=== PATIENT | female | born 1975 ===

== ENCOUNTER 2018-01-13 21:11 | Outpatient (REF) | payer MEDICAID, SELFPAY ==
[2018-01-13 22:00] LABS: Abs Immature Grans 0.01 k/cumm (0.0-0.09); Absolute Eosinophil Count 0.74 k/cumm (0.0-0.7); Absolute Lymphocyte Count 2.51 k/cumm (1.2-3.4); Absolute Monocyte Count 1.03 k/cumm (0.11-0.7); Absolute Neutrophil Count 3.66 k/cumm (1.2-6.7); Basophils % 1.2; Eosinophils % 9.2; HCT 39.7 % (36.0-46.0); HGB 12.9 g/dL (12.0-15.5); Immature Grans % 0.1; Lymphocytes % 31.2; Mean Corp. HGB Concentration 32.5 g/dL (32.0-36.0); Mean Corpuscular Hemoglobin 26.7 pg (27.0-33.0); Monocytes % 12.8; Neutrophils % 45.5; Platelet Count 414 x1000/uL (130-400); RBC 4.84 m/cumm (4.00-5.20); RBC Distribution Width 16.2 % (11.7-14.6); White Blood Cell Count 8.05 k/cumm (4.4-10.8)
[2018-01-13 22:24] LABS: Anion Gap 8.9 mmol/L (3-11); BUN 12 mg/dL (7-18); CO2 27.1 mmol/L (21.0-32.0); CREATININE 0.87 mg/dL (0.55-1.02); Calcium 9.3 mg/dL (8.5-10.1); Chloride 101 mmol/L (98-107); Glucose 85 mg/dL (70-100); Potassium 4.4 mmol/L (3.5-5.1); Sodium 137 mmol/L (136-145); TSH (W/Ref FT4) 1.03 uIU/mL (0.358-3.74)
== END 2018-01-13 21:31 ==
LOC: NCHCN 21:11
PROVIDERS: Referring Provider Nurse Practitioner; Visit Provider Nurse Practitioner
DX: R00.2 Palpitations (principal)
CPT/HCPCS: 80048; 84443; 85025

== ENCOUNTER 2018-01-14 15:28 | Outpatient (CLI) | payer MEDICAID, SELFPAY | END 2018-01-14 15:48 | PROVIDERS: PCP Internal Medicine; Visit Provider Nurse Practitioner | DX: R00.1 Bradycardia, unspecified (principal); R00.2 Palpitations | CPT/HCPCS: 93225 ==

== ENCOUNTER 2018-01-15 07:45 | Outpatient (CLI) | payer MEDICAID, SELFPAY ==
[2018-01-15 09:03] LABS: Cholesterol 149 mg/dL (50-200); Glucose 94 mg/dL (70-100); HDL Cholesterol 62 mg/dL (40-60); LDL CHOLESTEROL 74 mg/dL (<100); Triglyceride 67 mg/dL (30-150)
== END 2018-01-15 08:05 ==
PROVIDERS: PCP Internal Medicine; Visit Provider Nurse Practitioner
DX: Z13.1 Encounter for screening for diabetes mellitus (principal); Z13.220 Encounter for screening for lipoid disorders
CPT/HCPCS: 36415; 80061; 82947; 83721; 83735

== ENCOUNTER 2018-01-18 11:23 | Outpatient (REF) | payer MEDICAID, SELFPAY ==
--- NOTE | 2018-01-18 16:42 | W.HOLTRPT ---
Holter Monitor Report Holter Monitor Note: Baseline sinus. Rare single PAC. No atrial fibrillation or SVT. Frequent single PVC, 1484 total 0.6% total beat. 2 couplets. No VT. No bradycardia. No symptoms. Average heart rate 83 bpm, range 60-142 bpm.
== END 2018-01-18 11:43 ==
LOC: RT 11:23
PROVIDERS: PCP Internal Medicine; Visit Provider Nurse Practitioner
DX: R00.2 Palpitations (principal); I49.3 Ventricular premature depolarization
CPT/HCPCS: 93226

== ENCOUNTER 2018-01-27 21:00 | Emergency (ER) | payer MEDICAID, SELFPAY ==
[2018-01-27 21:07] VITALS: BP 159/87; PULSE 90; RESP 16; TEMP 36.1; O2SAT 98
--- NOTE | 2018-01-27 21:24 | W.ED.GENAD ---
Discharge Plan Disposition Patient Disposition: HOME Condition: Improving Discharge Details Chief Complaint: Dizzy/Sync Clinical Impression: Heart palpitations Primary Care Provider: Jose Antonio Chi ED Provider: Wilder Madison Home Meds and New Rx's Prescriptions: No Action No Known Home Meds RF: 0 Discharge Instructions Instructions: Palpitations (ED) Additional Instructions: Small, frequent sips of fluids to maintain hydration. Follow-up with cardiology as planned. Return to the emergency department if you develop any acute chest discomfort, difficulty breathing, or any other acute concerns Medical Decision Making 42-year-old female presents from home with report of intermittent episodes of irregular heart rate over weeks time. Recurred again tonight while at [employer]. Associated with diaphoresis. She recently underwent Holter monitor and reported on January 18 shows heart rates ranging from the 60s-140s without evidence of A. fib or SVT. She arrives improved, afebrile, without further complaints. Differential diagnosis would include dehydration, electrolyte abnormalities, stable tachydysrhythmia, must consider ACS or PE. Patient IV access established, given fluid bolus, referred for laboratory testing, EKG. Troponin negative, chemistries reassuring, TSH within normal limits as is the CBC. Patient improved while in the ED. She did have a mildly elevated d-dimer and therefore was referred for chest CT to rule out PE. This was a negative study. Patient has pre-standing follow-up with cardiology. Do not feel that she requires further evaluation at this time. She stable and improved, appropriate for discharge to home with her . ECG Data Attestation: I personally reviewed and interpreted this ECG (s) as follows: Interpretation: Normal sinus rhythm, the rate is 95, the QRS is narrow, no ST segment elevate. HPI General Mode of arrival: ambulatory. Date/Time Provider Initiated Documentation: 01/27/18 21:02. Limitations to Documentation: no limitations. Information obtained by: patient and family. History of Present Illness 42 year old F presents to the emergency department with the chief complaint of Palpitations, described as moderate, Quality is described as other, and is localized to the chest. Patient reports no radiation. Patient started experiencing this minute(s) and it has been intermittent and now resolved. No relieving factors improve symptom(s), No exacerbating factors reported . Patient notes diaphoresis; denies chest pain. Related Data Home Medications Medication Instructions Recorded Confirmed Unknown [No Known Home Meds] 01/27/18 01/27/18 General Stated Complaint: Dizzy/Sync YANN: 3 Review of Systems Review of Systems 8 systems reviewed and otherwise negative Exam Narrative Exam Narrative: GEN: awake, alert, oriented 3. Pleasant, well groomed, interactive. HEAD: Normocephalic, atraumatic ENT: Mucous membranes moist, oropharynx unremarkable, External ear exam unremarkable EYES: PERRL, EOMI NECK: Full ROM, no MANUEL, no menigismus CHEST/RESP: Nontender, clear to auscultation bilateral, no wheeze/rhonchi/rales CARDIOVASCULAR: RRR, no murmur, rub anita. 2+ Rad pulse bilateral ABDOMEN: Soft, nontender, no mass. +Bowel sounds EXT: Full ROM, no edema, no rash Neuro: Grossly normal neurologic exam, conversant, interactive. Psych: Speech fluent, thoughts congruent, affect slightly anxious Course Vital Signs Temperature 36.1 C L 01/27/18 21:07 Pulse 90 01/27/18 21:07 Respiratory Rate 16 01/27/18 21:07 Blood Pressure 159/87 H 01/27/18 21:07 Pulse Oximetry 98 01/27/18 21:07 Temperature 36.1 C L 01/27/18 21:07 Temperature Source Skin 01/27/18 21:07 Pulse 90 01/27/18 21:07 Respiratory Rate 16 01/27/18 21:07 Blood Pressure 159/87 H 01/27/18 21:07 Blood Pressure Position Sitting 01/27/18 21:07 Pulse Oximetry 98 01/27/18 21:07 Oxygen Delivery Method Room Air 01/27/18 21:07 Oxygen Flow Rate 0 01/27/18 21:07
--- NOTE | 2018-01-27 21:27 | ED.GENADUL_ITS ---
Discharge Plan Disposition Patient Disposition: HOME Condition: Improving Discharge Details Chief Complaint: Dizzy/Sync Clinical Impression: Heart palpitations Primary Care Provider: Jose Antonio Chi ED Provider: Wilder Madison Home Meds and New Rx's Prescriptions: No Action No Known Home Meds RF: 0 Discharge Instructions Instructions: Palpitations (ED) Additional Instructions: Small, frequent sips of fluids to maintain hydration. Follow-up with cardiology as planned. Return to the emergency department if you develop any acute chest discomfort, difficulty breathing, or any other acute concerns Medical Decision Making 42-year-old female presents from home with report of intermittent episodes of irregular heart rate over weeks time. Recurred again tonight while at [employer]. Associated with diaphoresis. She recently underwent Holter monitor and reported on January 18 shows heart rates ranging from the 60s-140s without evidence of A. fib or SVT. She arrives improved, afebrile, without further complaints. Differential diagnosis would include dehydration, electrolyte abnormalities, stable tachydysrhythmia, must consider ACS or PE. Patient IV access established, given fluid bolus, referred for laboratory testing, EKG. Troponin negative, chemistries reassuring, TSH within normal limits as is the CBC. Patient improved while in the ED. She did have a mildly elevated d-dimer and therefore was referred for chest CT to rule out PE. This was a negative study. Patient has pre-standing follow-up with cardiology. Do not feel that she requires further evaluation at this time. She stable and improved, appropriate for discharge to home with her . ECG Data Attestation: I personally reviewed and interpreted this ECG (s) as follows: Interpretation: Normal sinus rhythm, the rate is 95, the QRS is narrow, no ST segment elevate. HPI General Mode of arrival: ambulatory . Date/Time Provider Initiated Documentation: 01/27/18 21:02 . Limitations to Documentation: no limitations . Information obtained by: patient and family . History of Present Illness 42 year old F presents to the emergency department with the chief complaint of Palpitations, described as moderate, Quality is described as other, and is localized to the chest. Patient reports no radiation. Patient started experiencing this minute(s) and it has been intermittent and now resolved. No relieving factors improve symptom(s), No exacerbating factors reported . Patient notes diaphoresis; denies chest pain. Related Data Home Medications Medication Instructions Recorded Confirmed Unknown [No Known Home Meds] 01/27/18 01/27/18 General Stated Complaint: Dizzy/Sync YANN: 3 Review of Systems Review of Systems 8 systems reviewed and otherwise negative Exam Narrative Exam Narrative: GEN: awake, alert, oriented 3. Pleasant, well groomed, interactive. HEAD: Normocephalic, atraumatic ENT: Mucous membranes moist, oropharynx unremarkable, External ear exam unremarkable EYES: PERRL, EOMI NECK: Full ROM, no MANUEL, no menigismus CHEST/RESP: Nontender, clear to auscultation bilateral, no wheeze/rhonchi/rales CARDIOVASCULAR: RRR, no murmur, rub anita. 2+ Rad pulse bilateral ABDOMEN: Soft, nontender, no mass. +Bowel sounds EXT: Full ROM, no edema, no rash Neuro: Grossly normal neurologic exam, conversant, interactive. Psych: Speech fluent, thoughts congruent, affect slightly anxious Course Vital Signs Temperature 36.1 C L 01/27/18 21:07 Pulse 90 01/27/18 21:07 Respiratory Rate 16 01/27/18 21:07 Blood Pressure 159/87 H 01/27/18 21:07 Pulse Oximetry 98 01/27/18 21:07 Temperature 36.1 C L 01/27/18 21:07 Temperature Source Skin 01/27/18 21:07 Pulse 90 01/27/18 21:07 Respiratory Rate 16 01/27/18 21:07 Blood Pressure 159/87 H 01/27/18 21:07 Blood Pressure Position Sitting 01/27/18 21:07 Pulse Oximetry 98 01/27/18 21:07 Oxygen Delivery Method Room Air 01/27/18 21:07 Oxygen Flow Rate 0 01/27/18 21:07
[2018-01-27 21:34] LABS: Abs Immature Grans 0.01 k/cumm (0.0-0.09); Absolute Basophil Count 0.08 k/cumm (0.0-0.2); Absolute Eosinophil Count 0.53 k/cumm (0.0-0.7); Absolute Lymphocyte Count 3.82 k/cumm (1.2-3.4); Absolute Neutrophil Count 3.46 k/cumm (1.2-6.7); Basophils % 0.9; Eosinophils % 5.8; HCT 36.9 % (36.0-46.0); HGB 12.2 g/dL (12.0-15.5); Immature Grans % 0.1; Lymphocytes % 41.5; Mean Corp. HGB Concentration 33.1 g/dL (32.0-36.0); Mean Corpuscular Hemoglobin 26.9 pg (27.0-33.0); Mean Corpuscular Volume 81.3 fL (80-95); Mean Platelet Volume 10.3 fL (8.0-11.0); Monocytes % 14.1; Neutrophils % 37.6; Platelet Count 399 x1000/uL (130-400); RBC 4.54 m/cumm (4.00-5.20); RBC Distribution Width 15.7 % (11.7-14.6)
[2018-01-27] MEDS: Lactated Ringers 1,000 ML 1000 ML IV (21:35)
[2018-01-27 21:59] LABS: ALT 68 U/L (12-78); AST 43 U/L (15-37); Albumin 3.6 g/dL (3.4-5.0); Alkaline Phosphatase 87 U/L (46-116); Anion Gap 6.6 mmol/L (3-11); BUN 13 mg/dL (7-18); Bilirubin, Total 0.7 mg/dL (0.2-1.0); CO2 31.4 mmol/L (21.0-32.0); CREATININE 0.86 mg/dL (0.55-1.02); Calcium 9.3 mg/dL (8.5-10.1); Chloride 101 mmol/L (98-107); Glucose 118 mg/dL (70-100); Magnesium 1.8 mg/dL (1.8-2.4); Potassium 3.5 mmol/L (3.5-5.1); Sodium 139 mmol/L (136-145); TSH 1.39 uIU/mL (0.358-3.74); Total Protein 8.5 g/dL (6.4-8.2)
[2018-01-27 22:01] LABS: Troponin I < 0.02 ng/mL (0.00-0.06)
[2018-01-27 22:13] LABS: D-Dimer 546 ng/mlFEU (<500)
--- NOTE | 2018-01-27 22:46 | DI.CT_ITS ---
SYMPTOMS/DIAGNOSIS: PALPITATIONS, ELEVATED D-DIMER CHEST CT FOR PULMONARY EMBOLISM: CT angiography was performed with multi slice acquisition and multi planar and 3D reconstruction. No pulmonary emboli are identified. The lungs are expiratory. No effusion, infiltrate or adenopathy is seen. The heart size is normal. The visualized portions of the upper abdomen are unremarkable. No pneumothorax or thoracic compression fractures are seen. IMPRESSION: No evidence of pulmonary emboli or other acute abnormality.
[2018-01-27] MEDS: Omnipaque 350 MG/ML 100 ML BTL IJ (22:49)
--- NOTE | 2018-01-27 23:13 | DI.VRAD_ITS ---
EXAM: CT Angiography Chest With Intravenous Contrast CLINICAL HISTORY: 42 years old, female; Signs and symptoms; Other: Palpitations, elevated d dimer TECHNIQUE: Axial computed tomographic angiography images of the chest with intravenous contrast using pulmonary embolism protocol. MIP reconstructed images were created and reviewed. Coronal and sagittal reformatted images were created and reviewed. CONTRAST: 100 mL of Omnipaque 350 administered intravenously. COMPARISON: No relevant prior studies available. FINDINGS: Pulmonary arteries: Unremarkable. No pulmonary embolism. Aorta: No acute findings. No thoracic aortic aneurysm. Lungs: Unremarkable. No mass. No consolidation. Pleural space: Unremarkable. No significant effusion. No pneumothorax. Heart: Unremarkable. No cardiomegaly. No significant pericardial effusion. No evidence of RV dysfunction. Bones/joints: No acute fracture. No dislocation. Soft tissues: Unremarkable. Lymph nodes: Unremarkable. No enlarged lymph nodes. IMPRESSION: Normal chest CTA. No pulmonary embolism. Dictated and Authenticated by: Jose Antonio Diaz MD. Ordering:JONATHAN BECKER MD
[2018-01-27 23:25] VITALS: TEMP 37.3
== END 2018-01-27 23:20 | disposition home or self-care (01) ==
PROVIDERS: Emergency Provider Emergency Medicine; PCP Internal Medicine
DX: R00.2 Palpitations (principal); R61 Generalized hyperhidrosis; R79.1 Abnormal coagulation profile
CPT/HCPCS: 36415; 71275; 80053; 93005; 96360; 99285; 83735; 84443; 84484; 85025; 85379; 93010; 99284; J3490

== ENCOUNTER 2019-08-13 09:46 | Outpatient (REF) | payer MEDICAID, SELFPAY ==
[2019-08-15 11:17] LABS: Campylobacter PCR Negative (Negative); Salmonella PCR Negative (Negative); Shiga Toxin PCR Negative (Negative); Shigella/Enteroinvasive Ecoli Negative (Negative)
== END 2019-08-13 10:06 ==
LOC: NCHCN 09:46
PROVIDERS: PCP Family Medicine; Visit Provider Family Medicine
DX: R19.7 Diarrhea, unspecified (principal)
CPT/HCPCS: 87505

== ENCOUNTER 2019-08-14 11:24 | Outpatient (REF) | payer MEDICAID, SELFPAY | END 2019-08-14 11:44 | LOC: LBN 11:24 | PROVIDERS: PCP Family Medicine; Visit Provider Family Medicine | DX: R19.7 Diarrhea, unspecified (principal) | CPT/HCPCS: 87329; 87177 ==

== ENCOUNTER 2019-08-19 12:50 | Outpatient (REF) | payer MEDICAID, SELFPAY ==
[2019-08-19 22:06] LABS: ESR 41 mm/hr (0-20)
[2019-08-24 12:26] LABS: SS-A Antibody 89.5 Units (<20.0); SS-B (La) Ab, IgG 4.8 Units (<20.0)
[2019-08-24 13:30] LABS: ANA Interpretation Positive (Negative)
== END 2019-08-19 13:10 ==
LOC: NCHCN 12:50
PROVIDERS: PCP Internal Medicine; Visit Provider Family Medicine
DX: M35.00 Sjogren syndrome, unspecified (principal)
CPT/HCPCS: 85652; 86038; 86235

== ENCOUNTER 2020-03-02 11:28 | Outpatient (CLI) | payer MEDICAID, SELFPAY ==
[2020-03-02 14:49] LABS: ALT 97 U/L (14-59)
[2020-03-05 06:07] LABS: Vitamin D 25 Total 35.7 ng/ml (30-100)
[2020-03-05 11:21] LABS: AST 67 U/L (15-37); Alkaline Phosphatase 112 U/L (46-116)
== END 2020-03-02 11:48 ==
PROVIDERS: PCP Internal Medicine; Visit Provider Nurse Practitioner Family
DX: M35.00 Sjogren syndrome, unspecified (principal); E55.9 Vitamin D deficiency, unspecified
CPT/HCPCS: 36415; 82306; 84075; 84450; 84460

== ENCOUNTER 2020-05-25 17:06 | Outpatient (REF) | payer MEDICAID, SELFPAY ==
[2020-05-28 16:23] LABS: COVID-19 RT-PCR UVMMC Result Negative (Negative)
== END 2020-05-25 17:07 | disposition home or self-care (01) ==
LOC: NCHCN 17:06
PROVIDERS: PCP Internal Medicine; Visit Provider Internal Medicine
DX: Z20.822 Contact with and (suspected) exposure to COVID-19 (principal)
CPT/HCPCS: U0003

== ENCOUNTER 2020-06-04 21:32 | Outpatient (CLI) | payer MEDICAID, SELFPAY ==
--- NOTE | 2020-06-04 13:27 | DI.RAD_ITS ---
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 TECHNIQUE: 2D digital imaging was performed. FINDINGS: Heart size is normal. The mediastinum is not widened. Lungs are clear. No infiltrates nor pleural effusions. IMPRESSION: No acute pulmonary findings.I note this patient had a normal chest CT scan January 2018 which was neg ative for pulmonary emboli at that time. DATA REPOSITORY: RADIATION DOSE DELIVERED:
== END 2020-06-04 21:33 ==
LOC: DI 21:32
PROVIDERS: PCP Internal Medicine; Visit Provider Internal Medicine
DX: R07.89 Other chest pain (principal); M35.00 Sjogren syndrome, unspecified
CPT/HCPCS: 71046

== ENCOUNTER 2021-11-22 10:39 | Outpatient (REF) | payer MEDICAID, SELFPAY ==
--- NOTE | 2021-11-22 09:45 | PAPFT_PTH ---
PATIENT: Zuleima Mercer LOC: [facility]#:[id number] AGE/SX: 46/F ROOM: RE11/22/[address]: Bobbi Rae : 1975 BED: DIS: 11/22/2021 SPEC #: [id number] RECD: 11/22/21 15:23 STATUS: CAROL REDesean #: [id number] SAV: 11/22/21 09:[address]: Bobbi Rae DEPT: [facility] Cytology RECD BY: Yoly Yang ENTERED: 11/22/21 15:24 SP TYPE: PAPFT OTHR DR: Jose Antonio Chi Tissues: 1 - CX/ENDOCX FOR PAP SMEARS Procedures: PAP THIN PREP/UVM Screening HPV DNA PROBE Comments: [id number]
== END 2021-11-22 10:40 | disposition home or self-care (01) ==
LOC: NCHCN 10:39
PROVIDERS: PCP Internal Medicine; Visit Provider Nurse Practitioner Family
DX: Z12.4 Encounter for screening for malignant neoplasm of cervix (principal); Z11.51 Encounter for screening for human papillomavirus (HPV)
CPT/HCPCS: 88142; 87624

== ENCOUNTER 2021-11-27 12:10 | Emergency (ER) | payer MEDICAID, SELFPAY ==
--- NOTE | 2021-11-27 12:00 | RT.EKG_ITS ---
APPROVED REPORT Exam: Resting ECG Reason for Exam: rapid heart rate Patient Location: E HR:84 bpm ECG Measurements Heart Rate 84 AXIS [place] 172 P 75 QRSd 98 QRS 49 QT 361 T 35 QTc 428 Conclusion Sinus rhythm...normal P axis, V-rate 60- 99 no STEMI, non-diagnostic EKG I have reviewed and interpreted ECG and agree with software generated interpretation.
[2021-11-27 12:14] VITALS: BP 150/81; PULSE 96; RESP 18; O2SAT 100
[2021-11-27 14:26] LABS: Abs Immature Grans 0.01 10^3/uL (0.0-0.06); Absolute Basophil Count 0.08 10^3/uL (0.0-0.2); Absolute Lymphocyte Count 2.97 10^3/uL (1.2-3.4); Absolute Monocyte Count 0.89 10^3/uL (0.1-0.8); Absolute Neutrophil Count 2.64 10^3/uL (1.2-6.7); Basophils % 1.2; Eosinophils % 4.4; HCT 35.1 % (36.0-46.0); HGB 11.2 g/dL (11.2-15.7); Immature Grans % 0.1; Lymphocytes % 43.1; MCH 23.6 pg (27.0-33.0); MCHC 31.9 % (32.0-36.0); MCV 74 fL (80-95); MPV 9.8 fL (8.0-11.0); Monocytes % 12.9; Neutrophils % 38.3; Platelet Count 444 10^3/uL (130-400); RBC 4.75 10^6/uL (3.93-5.22); RDW 17.4 % (11.7-14.6); RDW-SD 46.1 fL; WBC 6.89 10^3/uL (4.4-10.8)
[2021-11-27 14:50] LABS: ALT 64 U/L (14-59); AST 49 U/L (15-37); Albumin 3.8 g/dL (3.4-5.0); Alkaline Phosphatase 148 U/L (46-116); Anion Gap 7.6 mmol/L (3-11); BUN 10 mg/dL (7-18); Bilirubin, Total 0.8 mg/dL (0.2-1.0); CO2 29.4 mmol/L (21.0-32.0); CREATININE 0.8 mg/dL (0.55-1.02); Calcium 9.9 mg/dL (8.5-10.1); Chloride 101 mmol/L (98-107); Glucose 97 mg/dL (74-106); Potassium 3.7 mmol/L (3.5-5.1); Sodium 138 mmol/L (136-145); TSH (W/Ref FT4) 1.07 uIU/mL (0.36-3.74); Total Protein 9.6 g/dL (6.4-8.2); Troponin I < 50 ng/L (<or=60)
[2021-11-27 14:59] LABS: D-Dimer 561 ng/mlFEU (<500)
[2021-11-27 15:00] LABS: Diff Comment Agrees w/ Instrument; Microcytosis 1+
--- NOTE | 2021-11-27 15:00 | DI.CT_ITS ---
Exam(s) CT CHEST PE CTA EXAM: CT CHEST PE CTA CLINICAL HISTORY: elevated dimer, shortness of breath, recent covid. TECHNIQUE: Imaging Protocol: Axial CT angiography was performed with multi-slice acquisition and mu lti-planar and/or 3D reconstructions. CONTRAST MATERIAL: Intravenous: Omnipaque 350 Contrast volume:structured data in ml FINDINGS: CT angiography of the chest was performed with intravenous infusion of 100 cc of Omnipaque 350. The lungs are clear. No pleural effusion. Tracheobronchial tree appears intact. No evidence of pulmonary embolic disease. Thoracic aorta is of normal diameter, no thoracic aortic an eurysm or dissection, major branch vessels appear intact. No mediastinal or hilar adenopathy. Images obtained through the upper abdomen show unremarkable appearance of the visualized portions of the liver,pancreas, adrenals, and kidneys. IMPRESSION: Negative CT angiogram of the chest. No evidence of pulmonary embolic disease. RADIATION DOSE DELIVERED: 345.28mGy.cm Total DLP 345.28mGy.cm Total DLP !Error CTDIvol DATA REPOSITORY: All CT scans at this facility are submitted to the National Radiology Data Registry (NRDR) Dose Index Registry (DIR) with the [employer] (A[employer]). RADIATION OPTIMIZATION: All CT scans at this facility use at least one of these dose optimization te chniques: automated exposure control; mA and/or kV adjustment per patient size (includes targeted exa ms where dose is matched to clinical indication); or iterative reconstruction.
[2021-11-27] MEDS: Omnipaque 350 MG/ML 100 ML BTL IJ (15:22)
--- NOTE | 2021-11-27 16:06 | ED.GENADUL_ITS ---
Discharge Plan Disposition Patient Disposition: HOME Condition: Stable Discharge Details Clinical Impression: Palpitations Primary Care Provider: Jose Antonio Chi ED Provider: Corry Irene Home Meds and New Rx's Prescriptions: Continued dextroamphetamine-amphetamine [Adderall] 10 mg Tablet 10 mg PO PRN PRN clonazepam 0.5 mg Tablet 0.5 mg PO PRN PRN Discharge Instructions Instructions: Heart Palpitations (ED) Additional Instructions: Report for Holter monitor, they will likely call you tomorrow Limit your exertional activities until you are reevaluated in the outpatient setting with your primary care physician Keep yourself hydrated Return earlier should you have any worsening complaints Referrals: Jose Antonio Chi MD [Primary Care Provider] - Discharge Orders Other Ambulatory Orders: Holter Monitor (Routine) Timeframe: 1 Week Facility: [facility] - Location: Respiratory Therapy Ordered By: Corry Irene Discharge Data Discharge Date/Time-TO BE ENTERED AT DEPARTURE: 11/27/21 16:14 Medical Decision Making Patient appears well Her D-dimer was slightly elevated at 571, CT was performed without acute abnormality I do not see a clear source for her symptoms Holter monitor ordered in the outpatient setting She is instructed to follow-up with her PCP Certainly this could be a reaction to the shingles vaccine, there is no evidence of anaphylaxis on today's visit patient does not have obvious dysrhythmia noted in the emergency department Given negative CTA, negative troponin with several days of symptoms, negative diagnostic work-up otherwise, patient discharged home in stable condition with stable vital Medical Records Medical records reviewed: Yes I reviewed the patient's medical records. Lab Data Lab results reviewed: Yes I reviewed the patient's lab results. HPI General Date/Time Provider Initiated Documentation: 11/27/21 12:20 . HPI Narrative: This 46-year-old female with history of recent shingles vaccine on Thursday presents for report of palpitations and dyspnea since the vaccine. In fact she noticed the symptoms approximately 3 hours after the shingles vaccine. She states she has a history of unusual reaction to vaccination. She denies any fever or chills. She denies any chest discomfort. She states she has had similar symptoms in the past and has had Holter monitor without dysrhythmia per patient. Denies history of pulmonary embolism. Denies any calf pain or leg denies any recent flights, surgeries, long drives. Related Data Home Medications Medication Instructions Recorded Confirmed clonazepam 0.5 mg tablet 0.5 mg PO PRN PRN 11/27/21 11/27/21 dextroamphetamine-amphetamine 10 10 mg PO PRN PRN 11/27/21 11/27/21 mg tablet (Adderall) Allergies Allergy/AdvReac Type Severity Reaction Status Date / Time acetaminophen [From Tylenol] AdvReac Unverified 11/27/21 12:19 codeine AdvReac Unverified 11/27/21 12:19 fluoxetine [From Prozac] AdvReac Unverified 11/27/21 12:19 isotretinoin [From Accutane] AdvReac Unverified 11/27/21 12:19 General Stated Complaint: Palpitatns YANN: 3 Review of Systems All systems reviewed & are unremarkable except as noted in HPI and below PFSH All Active Problems (Updated 11/27/21 @ 15:51 by ROSALES Zuniga) Palpitations (Acute) Palpitations (Acute) Social History (System 03/02/20 @ 15:36 by Jung Wilkinson) Smoking/Tobacco Use Status: Former Tobacco Use Smoking risk assessment performed?: Yes Alcohol Intake: never Drug use: Never Substance use type: does not use Do you feel safe at home: Yes Do you feel safe in your relationship?: Yes Exam Const General: cooperative and comfortable Orientation: alert and oriented x3 Eyes General: appearance normal, both eyes and all related structures Resp Effort & Inspection: normal respiratory effort Auscultation: clear to auscultation bilaterally Cardio Rate: regular rate Rhythm: regular rhythm Heart Sounds: no murmurs GI Inspection: normal to inspection Neuro General: patient alert and patient oriented x3 Extrem Other: Distal pulses intact, no calf swelling or tenderness Course Vital Signs Vital signs: Vital Signs Pulse 96 H 11/27/21 12:14 Respiratory Rate 18 11/27/21 12:14 Blood Pressure 150/81 H 11/27/21 12:14 Pulse Oximetry 100 11/27/21 12:14 Temperature Source Temporal Artery Scan 11/27/21 12:14 Pulse 96 H 11/27/21 12:14 Respiratory Rate 18 11/27/21 12:14 Respiratory Effort 11/27/21 12:17 Blood Pressure 150/81 H 11/27/21 12:14 Blood Pressure Position Sitting 11/27/21 12:14 Pulse Oximetry 100 11/27/21 12:14 Oxygen Delivery Method Room Air 11/27/21 12:14 Oxygen Flow Rate 0 11/27/21 12:14 Pain Level 0 11/27/21 12:14 Lab/Test Results Lab/Test Results: Laboratory Tests Range/Units 11/27/21 11/27/21 11/27/21 13:24 14:15 14:15 WBC (4.4-10.8) 10^3/uL 6.89 RBC (3.93-5.22) 10^6/uL 4.75 Hgb (11.2-15.7) g/dL 11.2 Hct (36.0-46.0) % 35.1 L MCV (80-95) fL 74 L MCH (27.0-33.0) pg 23.6 L MCHC (32.0-36.0) % 31.9 L RDW (11.7-14.6) % 17.4 H Plt Count (130-400) 10^3/uL 444 H MPV (8.0-11.0) fL 9.8 Immature Gran % 0.1 Neutrophils % 38.3 Lymphocytes % 43.1 Monocytes % 12.9 Eosinophils % 4.4 Basophils % 1.2 Nucleated RBC % (0.0-0.3) % 0.0 Absolute Neutrophils (1.2-6.7) 10^3/uL 2.64 Absolute Lymphocytes (1.2-3.4) 10^3/uL 2.97 Absolute Monocytes (0.1-0.8) 10^3/uL 0.89 H Absolute Eosinophils (0.0-0.7) 10^3/uL 0.30 Absolute Basophils (0.0-0.2) 10^3/uL 0.08 RBC Morphology See Below Microcytosis 1+ D-Dimer (<500) ng/mlFEU 561 H Sodium (136-145) mmol/L 138 Potassium (3.5-5.1) mmol/L 3.7 Chloride (98-107) mmol/L 101 Carbon Dioxide (21.0-32.0) mmol/L 29.4 Anion Gap (3-11) mmol/L 7.6 BUN (7-18) mg/dL 10 Creatinine (0.55-1.02) mg/dL 0.8 Estimated GFR/1.73 m2 (mL/min/1.73m2) >= 60.00 Glucose (74-106) mg/dL 97 Calcium (8.5-10.1) mg/dL 9.9 Magnesium (1.8-2.4) mg/dL 2.0 Total Bilirubin (0.2-1.0) mg/dL 0.8 AST (15-37) U/L 49 H ALT (14-59) U/L 64 H Alkaline Phosphatase (46-116) U/L 148 H Troponin I (<or=60) ng/L < 50 Total Protein (6.4-8.2) g/dL 9.6 H Albumin (3.4-5.0) g/dL 3.8 TSH (0.36-3.74) uIU/mL 1.07 POC- Test(urine) Negative
[2021-11-27 16:09] VITALS: BP 128/82; PULSE 85; RESP 18; TEMP 37.5; O2SAT 99
[2021-11-28 08:34] LABS: Iron 26 ug/dL (50-170)
== END 2021-11-27 16:14 | disposition home or self-care (01) ==
PROVIDERS: Emergency Provider Physician Assistant; PCP Internal Medicine
DX: R00.2 Palpitations (principal); T50.B95A Adverse effect of other viral vaccines, initial encounter; R79.1 Abnormal coagulation profile; Z87.891 Personal history of nicotine dependence
CPT/HCPCS: 71275; 80053; 81025; 93005; 99285; 83540; 83735; 84443; 84484; 85025; 85379; 93010; 99284; J3490

== ENCOUNTER 2022-05-12 10:35 | Outpatient (REF) | payer MEDICAID, SELFPAY ==
[2022-05-12 15:58] LABS: Abs Immature Grans 0.01 10^3/uL (0.0-0.06); Absolute Basophil Count 0.08 10^3/uL (0.0-0.2); Absolute Eosinophil Count 0.27 10^3/uL (0.0-0.7); Absolute Lymphocyte Count 3.03 10^3/uL (1.2-3.4); Absolute Monocyte Count 0.59 10^3/uL (0.1-0.8); Absolute Neutrophil Count 2.05 10^3/uL (1.2-6.7); Basophils % 1.3; Eosinophils % 4.5; HCT 37.1 % (36.0-46.0); HGB 12.1 g/dL (11.2-15.7); Immature Grans % 0.2; Lymphocytes % 50.2; MCH 26.4 pg (27.0-33.0); MCHC 32.6 % (32.0-36.0); MCV 81 fL (80-95); MPV 12.1 fL (8.0-11.0); Monocytes % 9.8; Platelet Count 389 10^3/uL (130-400); RBC 4.58 10^6/uL (3.93-5.22); RDW 17.6 % (11.7-14.6); RDW-SD 51.8 fL; WBC 6.03 10^3/uL (4.4-10.8)
[2022-05-12 16:36] LABS: ALT 125 U/L (14-59); AST 90 U/L (15-37); Albumin 3.6 g/dL (3.4-5.0); Alkaline Phosphatase 174 U/L (46-116); BUN 14 mg/dL (7-18); Bilirubin, Total 0.7 mg/dL (0.2-1.0); CREATININE 0.9 mg/dL (0.55-1.02); Calcium 9.3 mg/dL (8.5-10.1); Calculated LDL 93 mg/dL (<100); Chloride 102 mmol/L (98-107); Cholesterol 172 mg/dL (<200); Estimated GFR 78.37 (mL/min/1.73m2); Glucose 92 mg/dL (74-106); HDL Cholesterol 61 mg/dL (40-60); Potassium 4.6 mmol/L (3.5-5.1); Sodium 137 mmol/L (136-145); Total Protein 7.9 g/dL (6.4-8.2); Triglyceride 90 mg/dL (<150)
[2022-05-12 16:37] LABS: Iron 94 ug/dL (50-170); Total Iron Binding Capacity 313 ug/dL (250-450); Transferrin Sat 30 % (15-50)
[2022-05-12 17:12] LABS: Vitamin D 25 Total 35.4 ng/mL (30-100)
[2022-05-13 09:53] LABS: Hepatitis C Ab w Rflx HCV PCR Negative (Negative)
[2022-05-14 16:43] LABS: Mitochondrial Ab, M2 <0.1 U
[2022-05-15 12:09] LABS: IgA 307 mg/dL (85-499); Interpretation (See Note); Tissue Transglutaminase IgA <1.2 U/mL (<4.0)
== END 2022-05-12 10:36 | disposition home or self-care (01) ==
LOC: NCHCN 10:35
PROVIDERS: PCP Internal Medicine; Visit Provider Internal Medicine
DX: E61.1 Iron deficiency (principal); R94.5 Abnormal results of liver function studies; F90.8 Attention-deficit hyperactivity disorder, other type; M35.00 Sjogren syndrome, unspecified; R79.89 Other specified abnormal findings of blood chemistry; E55.9 Vitamin D deficiency, unspecified
CPT/HCPCS: 80053; 80061; 82306; 82784; 83516; 86803; 83540; 83550; 84443; 85025

== ENCOUNTER 2022-06-09 01:00 | Outpatient (CLI) | payer MEDICAID, SELFPAY ==
--- NOTE | 2022-06-09 07:00 | DI.US_ITS ---
Exam(s) US ABDOMEN LIMITED EXAM: US ABDOMEN LIMITED CLINICAL HISTORY: SJOGREN'S SYNDROME, M35.00; ABNL LIVER FUNCTION TESTS, R94.5 TECHNIQUE: Ultrasound abdomen performed using standard protocol. COMPARISON: CT CT CHEST PE CTA from 11/27/2021 FINDINGS: LIVER: Normal size. Slightly increased echogenicity. No focal liver lesions are seen.. GALLBLADDER: No evidence of cholelithiasis. No evidence of wall thickening. No pericholecystic fluid identified. SALAS'S SIGN: Negative. BILIARY SYSTEM: No intrahepatic or extrahepatic biliary ductal dilation. RIGHT KIDNEY: Normal size. No evidence of renal calculi. No evidence of hydronephrosis. No suspicious renal mass. No cyst identified. PANCREAS: Normal where visualized. ABDOMINAL AORTA AND IVC: Visualized portions normal caliber. ASCITES: None seen. IMPRESSION: Mild hepatic steatosis. DATA REPOSITORY:
== END 2022-06-09 01:20 ==
LOC: DI 01:00
PROVIDERS: PCP Internal Medicine; Visit Provider Internal Medicine
DX: K76.0 Fatty (change of) liver, not elsewhere classified (principal)
CPT/HCPCS: 76705

== ENCOUNTER 2023-02-13 15:56 | Outpatient (REF) | payer MEDICAID, SELFPAY ==
[2023-02-13 15:10] LABS: HCT 40.8 % (36.0-46.0); HGB 13.2 g/dL (11.2-15.7); MCH 25.8 pg (27.0-33.0); MCHC 32.4 % (32.0-36.0); MCV 80 fL (80-95); MPV 12.3 fL (8.0-11.0); Platelet Count 392 10^3/uL (130-400); RBC 5.12 10^6/uL (3.93-5.22); RDW 17.7 % (11.7-14.6); RDW-SD 51.3 fL; WBC 5.71 10^3/uL (4.4-10.8)
[2023-02-13 15:32] LABS: ALT 97 U/L (14-59); AST 65 U/L (15-37); Albumin 3.9 g/dL (3.4-5.0); Alkaline Phosphatase 189 U/L (46-116); Anion Gap 9.9 mmol/L (3-11); BUN 11 mg/dL (7-18); CO2 27.1 mmol/L (21.0-32.0); CREATININE 0.8 mg/dL (0.55-1.02); Calcium 9.8 mg/dL (8.5-10.1); Chloride 101 mmol/L (98-107); Estimated GFR 90.27 (mL/min/1.73m2); Glucose 95 mg/dL (74-106); Potassium 4.5 mmol/L (3.5-5.1); Sodium 138 mmol/L (136-145); TSH (W/Ref FT4) 0.79 uIU/mL (0.36-3.74); Total Protein 8.9 g/dL (6.4-8.2)
[2023-02-13 15:43] LABS: Vitamin D 25 Total 36.7 ng/mL (30-100)
[2023-02-13 22:51] LABS: Estradiol 62 pg/mL (See Note)
[2023-02-13 23:30] LABS: Prolactin 6.2 ng/mL (See Note)
[2023-02-13 23:32] LABS: FSH 36.4 mIU/mL (See Note)
== END 2023-02-13 15:57 | disposition home or self-care (01) ==
LOC: NCHCN 15:56
PROVIDERS: PCP Internal Medicine; Visit Provider Nurse Practitioner Family
DX: F41.9 Anxiety disorder, unspecified (principal); E55.9 Vitamin D deficiency, unspecified; N92.6 Irregular menstruation, unspecified
CPT/HCPCS: 80053; 82306; 85027; 82670; 83001; 84146; 84443

== ENCOUNTER 2024-06-10 13:08 | Outpatient (CLI) | payer MEDICAID, SELFPAY ==
--- NOTE | 2024-06-10 | DI.RAD_ITS ---
Exam(s) XR ELBOW RT COMPLETE EXAM: XR ELBOW RT COMPLETE CLINICAL HISTORY: M25.251 Pain in Right Elbow. TECHNIQUE: 2D digital imaging was performed of the left elbow. Images were obtained. AP, lateral and oblique views were obtained. COMPARISON: No exams were available for comparison FINDINGS: BONES: No acute fracture is present. No bony destructive lesion is seen. JOINTS: The elbow is normally aligned. No joint effusion is seen. SOFT TISSUE: Normal. IMPRESSION: Unremarkable radiographs of the right elbow. DATA REPOSITORY: RADIATION DOSE DELIVERED:
== END 2024-06-10 13:28 ==
LOC: DI 13:09
PROVIDERS: PCP Family Medicine; Visit Provider Physician Assistant Medical
DX: M25.521 Pain in right elbow (principal)
CPT/HCPCS: 73080

== ENCOUNTER 2024-10-25 12:31 | Outpatient (CLI) | payer MEDICAID, SELFPAY ==
--- NOTE | 2024-10-25 | DI.RAD_ITS ---
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 TECHNIQUE: 2D digital imaging was performed. Three views. COMPARISON: No exams were available for comparison FINDINGS: BONES: No acute fracture is present. No bony destructive lesion is seen. Tiny plantar calcaneal spur. JOINTS: No dislocation present. No significant degenerative changes. SOFT TISSUE: Normal. IMPRESSION: Tiny plantar spur, otherwise unremarkable radiographs of the right foot. DATA REPOSITORY: RADIATION DOSE DELIVERED:
== END 2024-10-25 12:51 ==
PROVIDERS: PCP Family Medicine; Visit Provider Family Medicine
DX: G57.61 Lesion of plantar nerve, right lower limb (principal)
CPT/HCPCS: 73630

== ENCOUNTER 2025-03-24 09:12 | Outpatient (CLI) | payer MEDICAID, SELFPAY ==
[2025-03-24 08:38] LABS: Vitamin D 25 Total 55 ng/mL (30-100)
[2025-03-24 08:42] LABS: ALT 53 U/L (10-49); AST 43 U/L (<34); Albumin 4.2 g/dL (3.2-5.0); Alkaline Phosphatase 113 U/L (46-116); Anion Gap 7.4 mmol/L (3-11); BUN 10 mg/dL (9-23); Bilirubin, Total 0.80 mg/dL (0.2-1.2); CO2 29.6 mmol/L (20.0-31.0); Calcium 9.6 mg/dL (8.3-10.6); Chloride 102 mmol/L (98-107); Cholesterol 209 mg/dL (<200); Glucose 102 mg/dL (74-106); HDL Cholesterol 78 mg/dL (>40); Potassium 3.9 mmol/L (3.5-5.1); Sodium 139 mmol/L (136-145); Total Protein 7.8 g/dL (5.7-8.2)
== END 2025-03-24 09:13 | disposition home or self-care (01) ==
LOC: LBO 09:12
PROVIDERS: PCP Family Medicine; Visit Provider Family Medicine
DX: R94.5 Abnormal results of liver function studies (principal); E78.5 Hyperlipidemia, unspecified; E55.9 Vitamin D deficiency, unspecified
CPT/HCPCS: 36415; 80053; 80061; 82306